=== PATIENT | female | born 1955 | race Caucasian/White ===

== ENCOUNTER 2017-06-18 08:14 | Emergency (ER) | payer MEDICARE ==
[2014-10-03 15:06] VITALS: BMI 28.4
[~2017-06-18 08:14] MED LIST: CALTRATE 600 M600 M1 PO; COLACE100 MG PO; CRESTOR5 MG; EVISTA60 MG PO; IBUPROFEN200 MG; LOPRESSOR25 MG PO; NICODERM C1 PATCH .1 TRANSDERM; PERCOCET 10/3251 TA1 PO; PLAVIX75 MG PO; POTASSIUM CHLOR8 ME1 PO; PRAVASTATIN SOD10 MG; SYNTHROID25 MCG; SYNTHROID88 MCG PO
[2017-06-18 09:26] LABS: ALBUMIN 4.1 g/dL (3.4-5.0); ANION GAP 16.6 mmol/L (8-16); BILIRUBIN - TOTAL 0.39 mg/dL (0.2-1.3); CARBON DIOXIDE 25.8 mmol/L (21.0-32.0); CREATININE - SERUM 1.6 mg/dL (0.6-1.3); MAGNESIUM - SERUM 2.1 mg/dL (1.8-2.4); POTASSIUM - SERUM 4.4 mmol/L (3.5-5.1); PROTEIN - SERUM 9.1 g/dL (6.4-8.2)
[2017-06-18 09:30] LABS: BASOPHILS 0.4 % (0-2); EOSINOPHILS 1.7 % (0-7); HEMATOCRIT 42.9 % (36.0-48.0); HEMOGLOBIN 14.3 g/dL (12-16); IMMATURE GRANULOCYTES 1.1 % (0-5); LYMPHOCYTES 20.8 % (15-50); MCH 31.2 pg (26.0-34.0); MCHC 33.3 g/dL (31.0-37.0); MCV 93.7 fL (80.0-100.0); MEAN PLATELET VOLUME 10.3 fL (7.4-10.4); RBC 4.58 10x6/uL (4.00-5.40); RDW 13.2 % (11.5-14.5); WBC 12.7 10x3/uL (4.8-10.8)
[2017-06-18 09:35] LABS: CALCIUM 13.1 mg/dL (8.5-10.1)
[2017-06-18 09:38] LABS: PLATELET COUNT 351 10x3/uL (130-400)
[2017-06-19 14:16] LABS: SPE - ALPHA-1 GLOBULIN 0.3 g/dL (0.0-0.4); SPE - ALPHA-2 GLOBULIN 0.9 g/dL (0.4-1.0); SPE - BETA GLOBULIN 1.1 g/dL (0.7-1.3); SPE - GAMMA GLOBULIN 1.9 g/dL (0.4-1.8); SPE - M-SPIKE Not Observed g/dL (Not Observed); SPE - TOTAL PROTEIN 8.2 g/dL (6.0-8.5)
== END 2017-06-18 11:55 | disposition home or self-care (01) ==
LOC: D.ER 08:14
PROVIDERS: Emergency Medicine
DX: Z00.01 Encounter for general adult medical examination with abnormal findings (principal); E83.52 Hypercalcemia; E88.09 Other disorders of plasma-protein metabolism, not elsewhere classified; K21.9 Gastro-esophageal reflux disease without esophagitis

== ENCOUNTER 2018-02-13 15:41 | Emergency (ER) | payer MEDICARE ==
[~2018-02-13] VITALS: Ht 162.6 cm; Wt 81.8 kg
[~2018-02-13 15:41] MED LIST changes: +PRAVACHOL40 MG PO; -PRAVASTATIN SOD10 MG; +SYNTHROID125 MCG PO; -SYNTHROID88 MCG PO
[2018-02-13 15:45] VITALS: Ht 162.6 cm; Wt 81.8 kg
[2018-02-13 17:12] LABS: BASOPHILS 0.3 % (0-2); EOSINOPHILS 0.6 % (0-7); HEMOGLOBIN 13.2 g/dL (12-16); IMMATURE GRANULOCYTES 0.6 % (0-5); LYMPHOCYTES 19.1 % (15-50); MCH 32.1 pg (26.0-34.0); MCHC 33.8 g/dL (31.0-37.0); MCV 94.9 fL (80.0-100.0); MEAN PLATELET VOLUME 11.2 fL (7.4-10.4); MONOCYTES 8.8 % (2-11); NEUTROPHILS 70.6 % (40-80); PLATELET COUNT 268 10x3/uL (130-400); RBC 4.11 10x6/uL (4.00-5.40); RDW 13.2 % (11.5-14.5); WBC 14.7 10x3/uL (4.8-10.8)
[2018-02-13 17:15] LABS: ALBUMIN 3.9 g/dL (3.4-5.0); ANION GAP 13.7 mmol/L (8-16); BILIRUBIN - TOTAL 0.29 mg/dL (0.2-1.3); CALCIUM 11.8 mg/dL (8.5-10.1); CARBON DIOXIDE 24.9 mmol/L (21.0-32.0); CREATININE - SERUM 2.3 mg/dL (0.6-1.3); POTASSIUM - SERUM 3.6 mmol/L (3.5-5.1); PROTEIN - SERUM 8.1 g/dL (6.4-8.2)
[2018-02-13] MEDS ORDERED: HYDROCODONE-APA1 TAB PO (20:23)
[2018-02-13 22:55] VITALS: BP 123/77
[2018-03-09] MEDS ORDERED: BUSPAR5 MG PO (13:46)
[2018-03-09] MEDS ORDERED: CYMBALTA60 MG PO (13:53)
[2018-03-09] MEDS ORDERED: ACETAMINOPHEN325 MG PO (13:53)
[2018-03-09] MEDS ORDERED: SENNA LAXATIVE8.6 MG PO (13:54)
[2018-03-09] MEDS ORDERED: ALPHAGAN P15 ML LEFT EYE (13:55)
[2018-03-09] MEDS ORDERED: AZELASTINE137 MCG/0. NASAL (13:55)
[2018-03-09] MEDS ORDERED: BACLOFEN10 MG PO (13:56)
[2018-03-09] MEDS ORDERED: DULCOLAX5 MG PO (13:58)
[2018-03-09] MEDS ORDERED: CLARITIN 10 MG10 MG PO (13:58)
[2018-03-09] MEDS ORDERED: MELATONIN 3 MG1 TAB PO (14:01)
[2018-03-09] MEDS ORDERED: KLOR-CON 1010 MEQ PO (14:02)
[2018-03-09] MEDS ORDERED: XALATAN 0.0052.5 ML LEFT EYE (14:03)
[2018-03-09] MEDS ORDERED: VITAMIN D5000 UNIT PO (14:03)
== END 2018-02-13 22:56 ==
LOC: D.ER 15:41
PROVIDERS: Family Medicine
DX: S72.491A Other fracture of lower end of right femur, initial encounter for closed fracture (principal); W18.30XA Fall on same level, unspecified, initial encounter; Y93.89 Activity, other specified; Y92.019 Unspecified place in single-family (private) house as the place of occurrence of the external cause; Z86.73 Personal history of transient ischemic attack (TIA), and cerebral infarction without residual deficits; H40.9 Unspecified glaucoma; E07.9 Disorder of thyroid, unspecified; I10 Essential (primary) hypertension; I50.9 Heart failure, unspecified; I73.9 Peripheral vascular disease, unspecified

== ENCOUNTER → 2018-03-04 12:28 | Outpatient (CLI) | payer MEDICARE ==
[2018-02-13 15:45] VITALS: BMI 30.9
[~2018-03-04 12:28] MED LIST changes: +ACETAMINOPHEN325 MG PO; +ALPHAGAN P15 ML LEFT EYE; +AZELASTINE137 MCG/0. NASAL; +BACLOFEN10 MG PO; +BUSPAR5 MG PO; +CLARITIN 10 MG10 MG PO; +CYMBALTA60 MG PO; +DULCOLAX5 MG PO; +HYDROCODONE-APA1 TAB PO; +KLOR-CON 1010 MEQ PO; +MELATONIN 3 MG1 TAB PO; +SENNA LAXATIVE8.6 MG PO; +VITAMIN D5000 UNIT PO; +XALATAN 0.0052.5 ML LEFT EYE
== END | disposition home or self-care (01) ==
LOC: D.CT 12:28
DX: S72.401A Unspecified fracture of lower end of right femur, initial encounter for closed fracture (principal); X58.XXXA Exposure to other specified factors, initial encounter

== ENCOUNTER 2018-03-11 06:28 | Inpatient (IN) | payer MEDICARE ==
[2018-03-11] VITALS (7 sets, daily range): BP systolic 92–146; BP diastolic 58–80; BMI 25.0; BMI 29.3
[~2018-03-11] VITALS: Ht 157.5 cm; Wt 72.6 kg
--- NOTE | ~2018-03-11 | OP ---
PATIENT NAME: WALTER SUERO MEDICAL RECORD: [id number] :55 LOCATION:[facility] ADMISSION DATE: SURGEON: BRICE RADFORD DO DATE OF OPERATION: 03/11/2018 PROCEDURE: Right femur IM nail. PREOPERATIVE DIAGNOSIS: Right distal femur fracture. POSTOPERATIVE DIAGNOSIS: Right distal femur fracture. INDICATIONS: Ms. Suero is a 60-year-old female who is wheelchair bound due to stroke several years ago, fell and fractured her right distal femur. It was nondisplaced initially. She was placed in a brace. Once the patient came for a followup visit, x-rays were taken and that was displaced. CT scan was done and due to the displacement of the fracture and the patient's pain, decided to do a retrograde IM nail versus ORIF depending on how the fracture would reduce. The patient's family was informed of the risks and benefits of the procedure as well as the risks of infection, bleeding, need for further surgery, fracture, and even . They were okay with that and the patient was consented. The patient is wheelchair bound and has had 5 strokes in the past and is not completely alert and oriented; however, she can answer questions. SURGEON: Brice Radford DO DESCRIPTION OF PROCEDURE: The patient was taken to the operative suite, laid in supine position. The right lower extremity was prepped and draped in a sterile fashion. Once it was prepped and draped, a timeout was performed and everyone was agreement with the correct side, site, and the patient. The patient was given 2 grams Ancef preoperatively and then a timeout was performed and after had been prepped and draped and everyone was agreement with the correct side, site, patient and procedure, the incision was marked out in the inferior pole of the patella down to tibial tubercle. The knee was then flexed over the triangle. X-rays were taken and it was seen to be able to be reduced. Then, the incision that was marked out was done through the skin with a 10 blade down to the patellar tendon. This was incised and the fat pad was removed from the knee joint. The starting point was obtained on AP and lateral in the distal fragment and the opening reamer was used to open up the femoral canal. A reduction was then made and a reduction tool was used and the guidewire was placed up the femur. Once the guidewire was placed into the femur, it measured to be a 320 mm nail. Reaming began with an 8 and we reamed up to a 13.5. She had a very big canal, likely due to disuse. After the reaming was done, reduction was held the whole time. The nail was fed up through the femur over the guidewire and then the guidewire was removed. The fracture was held in good reduced position with the nail in place and the 3 distal locking screws were put in through the nail, first transversely and then 2 of the oblique screws into the distal fragment. These were then locked into place through the distal part of the nail and the nail jig was removed. Then, the proximal portion of the nail, this had been inserted just above the lesser trochanter. Perfect circles were made and a 36 screw was placed through the nail at the dynamic hole. The wounds were then thoroughly irrigated. The trocars were used through the jig. The incisions were made on the medial and lateral side of the knee as well as the proximal one, those were all thoroughly irrigated with normal saline and then the knee joint itself was irrigated thoroughly with 400 mL of normal saline. The patellar tendon was then closed with #1 Vicryl in a locking running OPERATIVE REPORT [id number] WALTER SUERO and the paratenon was closed with 2-0 Vicryl in a running locking stitch and then 2-0 Vicryl in inverted interrupted fashion on the skin. A 4-0 Monocryl was ran on the skin. Then, Telfa and Tegaderm were placed on the proximal incision and about the knee was Adaptic, 4 x 4s, Webril, Hansel wrap and placed in a knee immobilizer. The patient was then awakened and taken to recovery in stable condition. Blood loss was approximately 200 mL. COMPLICATIONS: None. TRANSINT:[id number] Voice Confirmation ID: [id number] DOCUMENT ID: [id number] BRICE RADFORD DO at 1428 CC: [id number] DICTATION DATE: 03/11/18 1317 TOOLING SUPERVISOR: 03/11/18 1336 [facility] [address] [place] [address]
[2018-03-11 07:01] LABS: HEMATOCRIT 36.7 % (36.0-48.0); HEMOGLOBIN 12.3 g/dL (12-16); MCH 31.9 pg (26.0-34.0); MCHC 33.5 g/dL (31.0-37.0); MCV 95.1 fL (80.0-100.0); MEAN PLATELET VOLUME 10.2 fL (7.4-10.4); RBC 3.86 10x6/uL (4.00-5.40); RDW 14.2 % (11.5-14.5); WBC 13.3 10x3/uL (4.8-10.8)
[2018-03-11 07:10] LABS: CALCIUM 9.1 mg/dL (8.5-10.1); CARBON DIOXIDE 19.3 mmol/L (21.0-32.0); CREATININE - SERUM 1.1 mg/dL (0.6-1.3); POTASSIUM - SERUM 4.3 mmol/L (3.5-5.1)
[2018-03-12 05:41] VITALS: BP 135/83
[2018-03-12 09:08] LABS: BASOPHILS 0.2 % (0-2); EOSINOPHILS 0.1 % (0-7); IMMATURE GRANULOCYTES 0.6 % (0-5); LYMPHOCYTES 20.6 % (15-50); MCH 31.8 pg (26.0-34.0); MCHC 33.1 g/dL (31.0-37.0); MCV 96.2 fL (80.0-100.0); MEAN PLATELET VOLUME 10.4 fL (7.4-10.4); MONOCYTES 11.4 % (2-11); NEUTROPHILS 67.1 % (40-80); PLATELET COUNT 352 10x3/uL (130-400); RBC 3.14 10x6/uL (4.00-5.40); RDW 14.5 % (11.5-14.5); WBC 14.5 10x3/uL (4.8-10.8)
[2018-03-12 09:13] LABS: ANION GAP 14.6 mmol/L (8-16); CALCIUM 8.6 mg/dL (8.5-10.1); CREATININE - SERUM 1.3 mg/dL (0.6-1.3); POTASSIUM - SERUM 3.8 mmol/L (3.5-5.1)
[2018-03-12 09:17] LABS: CARBON DIOXIDE 24.2 mmol/L (21.0-32.0)
[2018-03-12 10:48] VITALS: BP 108/70
[2018-03-12 12:34] VITALS: BMI 29.2
[2018-03-12 12:40] VITALS: BP 110/66
[2018-03-12 13:10] VITALS: Ht 157.5 cm; Wt 72.6 kg
[2018-03-12 16:19] LABS: APPEARANCE HAZY (CLEAR); BILIRUBIN NEGATIVE (NEGATIVE); COLOR DK YELLOW (YELLOW); GLUCOSE NEGATIVE (NEGATIVE); KETONE NEGATIVE (NEGATIVE); NITRITE NEGATIVE (NEGATIVE); PROTEIN TRACE mg/dL (NEGATIVE); UROBILINOGEN NORMAL (NORMAL)
[2018-03-12 16:20] LABS: RED CELLS - URINE 0-5 /hpf (0-5)
[2018-03-12 16:21] LABS: BACTERIA MODERATE /hpf (NONE SEEN)
[2018-03-12 16:59] VITALS: BP 95/59
[2018-03-12 20:00] VITALS: BP 90/44
[2018-03-13] VITALS: BP 106/62
[2018-03-13 04:00] VITALS: BP 102/68
[2018-03-13 06:26] LABS: ANION GAP 14.4 mmol/L (8-16); CALCIUM 8.6 mg/dL (8.5-10.1); CARBON DIOXIDE 22.8 mmol/L (21.0-32.0); CREATININE - SERUM 1.3 mg/dL (0.6-1.3)
[2018-03-13 06:27] LABS: POTASSIUM - SERUM 3.2 mmol/L (3.5-5.1)
[2018-03-13 06:41] LABS: BASOPHILS 0.4 % (0-2); EOSINOPHILS 1.4 % (0-7); HEMOGLOBIN 8.7 g/dL (12-16); IMMATURE GRANULOCYTES 1.1 % (0-5); MCH 31.4 pg (26.0-34.0); MCHC 32.2 g/dL (31.0-37.0); MCV 97.5 fL (80.0-100.0); MEAN PLATELET VOLUME 10.7 fL (7.4-10.4); MONOCYTES 10.6 % (2-11); NEUTROPHILS 61.5 % (40-80); RBC 2.77 10x6/uL (4.00-5.40); RDW 14.5 % (11.5-14.5); WBC 13.4 10x3/uL (4.8-10.8)
[2018-03-13 06:45] LABS: PLATELET COUNT 259 10x3/uL (130-400)
[2018-03-13 08:02] VITALS: BP 105/79
[2018-03-13 11:46] VITALS: BP 93/66
[2018-03-13 20:00] VITALS: BP 110/60
[2018-03-14] VITALS: BP 102/57
[2018-03-14 04:00] VITALS: BP 104/65
[2018-03-14 05:44] LABS: BASOPHILS 0.3 % (0-2); EOSINOPHILS 3.2 % (0-7); HEMATOCRIT 24.8 % (36.0-48.0); IMMATURE GRANULOCYTES 0.9 % (0-5); LYMPHOCYTES 27.2 % (15-50); MCH 31.5 pg (26.0-34.0); MCHC 32.3 g/dL (31.0-37.0); MCV 97.6 fL (80.0-100.0); MEAN PLATELET VOLUME 10.1 fL (7.4-10.4); MONOCYTES 11.9 % (2-11); NEUTROPHILS 56.5 % (40-80); PLATELET COUNT 234 10x3/uL (130-400); RBC 2.54 10x6/uL (4.00-5.40); RDW 14.5 % (11.5-14.5); WBC 11.6 10x3/uL (4.8-10.8)
[2018-03-14 06:07] LABS: ANION GAP 10.2 mmol/L (8-16); CALCIUM 8.2 mg/dL (8.5-10.1); CARBON DIOXIDE 25.8 mmol/L (21.0-32.0); CREATININE - SERUM 1.1 mg/dL (0.6-1.3)
[2018-03-14 09:11] VITALS: BP 104/62
[2018-03-14 12:05] LABS: % SATURATION 14 % (15-55); IRON 27 ug/dl (35-150); TOTAL IRON BIND CAPACITY 191 ug/dl (260-445); UNSAT IRON BIND CAPACITY 164 ug/dl (150-375)
[2018-03-14 15:35] VITALS: BP 135/69
[2018-03-14 19:32] LABS: APPEARANCE CLEAR (CLEAR); BILIRUBIN NEGATIVE (NEGATIVE); COLOR YELLOW (YELLOW); GLUCOSE NEGATIVE (NEGATIVE); KETONE NEGATIVE (NEGATIVE); NITRITE NEGATIVE (NEGATIVE); PROTEIN NEGATIVE (NEGATIVE); SPECIFIC GRAVITY 1.005 (1.005-1.020); UROBILINOGEN NORMAL (NORMAL)
[2018-03-14 19:58] VITALS: BP 127/70
[2018-03-15 04:00] VITALS: BP 96/57
[2018-03-15 06:42] LABS: BASOPHILS 0.3 % (0-2); HEMATOCRIT 26.9 % (36.0-48.0); HEMOGLOBIN 8.8 g/dL (12-16); IMMATURE GRANULOCYTES 1.1 % (0-5); LYMPHOCYTES 19.7 % (15-50); MCH 31.8 pg (26.0-34.0); MCHC 32.7 g/dL (31.0-37.0); MCV 97.1 fL (80.0-100.0); MEAN PLATELET VOLUME 10.2 fL (7.4-10.4); NEUTROPHILS 64.9 % (40-80); PLATELET COUNT 271 10x3/uL (130-400); RBC 2.77 10x6/uL (4.00-5.40); RDW 14.7 % (11.5-14.5); WBC 13.1 10x3/uL (4.8-10.8)
[2018-03-15 06:59] LABS: ANION GAP 13.3 mmol/L (8-16); CALCIUM 8.5 mg/dL (8.5-10.1); CARBON DIOXIDE 25.1 mmol/L (21.0-32.0); CREATININE - SERUM 1.2 mg/dL (0.6-1.3); POTASSIUM - SERUM 3.4 mmol/L (3.5-5.1)
[2018-03-15 09:07] VITALS: BP 107/77
[2018-03-15 15:26] VITALS: BP 113/89
[2018-03-15 19:31] VITALS: BP 115/67
[2018-03-16 04:18] LABS: BASOPHILS 0.3 % (0-2); HEMATOCRIT 28.4 % (36.0-48.0); HEMOGLOBIN 9.3 g/dL (12-16); IMMATURE GRANULOCYTES 1.2 % (0-5); LYMPHOCYTES 27.5 % (15-50); MCH 31.8 pg (26.0-34.0); MCHC 32.7 g/dL (31.0-37.0); MCV 97.3 fL (80.0-100.0); MEAN PLATELET VOLUME 10.6 fL (7.4-10.4); PLATELET COUNT 313 10x3/uL (130-400); RBC 2.92 10x6/uL (4.00-5.40); RDW 14.8 % (11.5-14.5); WBC 11.8 10x3/uL (4.8-10.8)
[2018-03-16 04:23] LABS: ANION GAP 13.4 mmol/L (8-16); CALCIUM 8.6 mg/dL (8.5-10.1); CARBON DIOXIDE 25.2 mmol/L (21.0-32.0); CREATININE - SERUM 1.2 mg/dL (0.6-1.3); POTASSIUM - SERUM 3.6 mmol/L (3.5-5.1)
[2018-03-16 06:28] VITALS: BP 123/79
[2018-03-16 06:52] VITALS: BP 163/94
[2018-03-16 08:47] VITALS: BP 118/71
[2018-03-16] MEDS ORDERED: Nicoderm [PBKC] TRANSDERM (10:07)
[2018-03-17 08:18] LABS: FOLATE (FOLIC ACID) - SERUM 9.8 ng/mL (>3.0)
== END 2018-03-16 11:41 | DRG 481 ==
LOC: D.OPS 06:28 → D.MS 15:22 → D.OPS 15:23 → D.MS 15:24
PROVIDERS: Anesthesiology; Internal Medicine Nephrology; Orthopaedic Surgery
PROC: 0QSB36Z Reposition Right Lower Femur with Intramedullary Internal Fixation Device, Percutaneous Approach (ICD-10-PCS; principal; 2018-03-11 08:30)
DX: S72.401A Unspecified fracture of lower end of right femur, initial encounter for closed fracture (principal); N17.9 Acute kidney failure, unspecified; N39.0 Urinary tract infection, site not specified; F17.203 Nicotine dependence unspecified, with withdrawal; S62.102A Fracture of unspecified carpal bone, left wrist, initial encounter for closed fracture; W05.0XXA Fall from non-moving wheelchair, initial encounter; D64.9 Anemia, unspecified; F44.9 Dissociative and conversion disorder, unspecified; I73.9 Peripheral vascular disease, unspecified; I25.10 Atherosclerotic heart disease of native coronary artery without angina pectoris; I11.0 Hypertensive heart disease with heart failure; I50.9 Heart failure, unspecified; Z95.5 Presence of coronary angioplasty implant and graft